=== PATIENT | female | born 1945 | race African-American/Black ===

== ENCOUNTER 2021-02-12 06:34 | Inpatient (IN) | payer MEDICARE, MEDICAID ==
[~2021-02-12] VITALS: Ht 152.4 cm; Wt 43.1 kg
[~2021-02-12 06:34] MED LIST: CARVEDILOL; COLACE; GABAPENTIN; NEXUM; NORVASC
[2021-02-12] MEDS ORDERED: ACETAMINOPHEN 325MG TABLET PO STA (07:29)
[2021-02-12] MEDS ORDERED: LEVOFLOXACIN 750MG PREMIX 150 ML IV ONE (07:30)
[2021-02-12] MEDS ORDERED: SODIUM CHLORIDE 0.9% 1000ML BAG (SEPSIS BOLUS) IV ONE (07:30)
[2021-02-12 09:23] LABS: BASOPHILS % 1.3 % (0.0-2.0); EOSINOPHILS % 2.6 % (0.0-5.0); HEMATOCRIT. 29.8 % (36.0-48.0); HEMOGLOBIN. 10.2 g/dL (12.0-16.0); LYMPHOCYTES % 28.3 % (20.0-50.0); MEAN CORPUSCULAR HEMOGLOBIN 29.4 pg (28.0-32.0); MEAN PLATELET VOLUME 8.3 fl (7.4-10.4); MONOCYTES % 6.3 % (2.0-8.0); NEUTROPHILS % 61.5 % (40.0-76.0); PLATELET 408 x1000/uL (130-400); RED BLOOD CELL COUNT 3.46 mill/uL (4.2-5.4); RED CELL DISTRIBUTION WIDTH 14.5 % (11.6-14.6)
[2021-02-12 09:29] LABS: CHLORIDE 109 mEq/L (98-107)
[2021-02-12 09:32] LABS: PROTHROMBIN TIME 10.3 sec (9.6-11.0)
[2021-02-12 09:41] LABS: CLARITY URINE CLEAR (CLEAR); COLOR URINE YELLOW (YELLOW); KETONES URINE NEGATIVE (NEGATIVE); LEUKOCYTE ESTERASE URINE NEGATIVE (NEGATIVE); NITRITE URINE NEGATIVE (NEGATIVE); OCCULT BLOOD URINE NEGATIVE (NEGATIVE); PH URINE 7.5 (4.5-8.0); PROTEIN URINE NEGATIVE (NEGATIVE); SPECIFIC GRAVITY URINE 1.017 (1.005-1.030)
[2021-02-12] MEDS ORDERED: ONDANSETRON HCL 4MG/2ML INJ IV PRN (13:45)
[2021-02-12] MEDS ORDERED: DIPHENHYDRAMINE 50MG/ML VIAL IV PRN (13:45)
[2021-02-12] MEDS ORDERED: CLONIDINE 0.1MG TABLET PO PRN (13:45)
[2021-02-12] MEDS ORDERED: IPRATROPIUM/ALBUTEROL 0.5-3(2.5)MG/3ML NEB HHN PRN (13:45)
[2021-02-12] MEDS ORDERED: LEVOFLOXACIN 500MG PREMIX 100 ML IV SCH (14:00)
[2021-02-12] MEDS: SODIUM CHLORIDE 0.9% 1,000 ML IV SCH (15:04)
[2021-02-13] VITALS (7 sets, daily range): BP systolic 107–157; BP diastolic 71–102
[2021-02-13] MEDS ORDERED: IOHEXOL-350 100 ML BOTTLE ONE (03:58)
[2021-02-13] MEDS ORDERED: MULT-1146 MT (04:52)
[2021-02-13] MEDS ORDERED: TRU10 EACHEYE (04:53)
[2021-02-13] MEDS ORDERED: [UNRECOGNIZED DRUG - CODE] EACHEYE (04:55)
[2021-02-13] MEDS ORDERED: ASCO500C18 MT (04:57)
[2021-02-13] MEDS ORDERED: TOPUD PO (04:58)
[2021-02-13] MEDS ORDERED: FERR220S6 MT (05:02)
[2021-02-13] MEDS ORDERED: ASPI-1497 MT (05:05)
[2021-02-13] MEDS ORDERED: CRAN450T10 MT (05:06)
[2021-02-13 07:47] LABS: CHLORIDE 110 mEq/L (98-107)
[2021-02-13 08:11] LABS: HDL CHOLESTEROL 60 mg/dL (40-59); LDL CHOLESTEROL 99 mg/dL (5-100)
[2021-02-13] MEDS: SODIUM CHLORIDE 0.9% 1,000 ML IV SCH ×2 (09:14→18:34)
[2021-02-13 10:39] LABS: BASOPHILS % 1.3 % (0.0-2.0); EOSINOPHILS % 4.4 % (0.0-5.0); HEMATOCRIT. 25.5 % (36.0-48.0); MEAN CORPUSCULAR HEMOGLOBIN 30.9 pg (28.0-32.0); MEAN CORPUSCULAR VOLUME 87.3 fL (81.0-99.0); MEAN PLATELET VOLUME 8.4 fl (7.4-10.4); MONOCYTES % 8.3 % (2.0-8.0); PLATELET 351 x1000/uL (130-400); RED BLOOD CELL COUNT 2.92 mill/uL (4.2-5.4); RED CELL DISTRIBUTION WIDTH 14.7 % (11.6-14.6)
[2021-02-13] MEDS ORDERED: LEVOFLOXACIN 250MG PREMIX 50 ML IV SCH (14:00)
[2021-02-13] MEDS: ACETAMINOPHEN 325MG TABLET PO PRN (18:34)
[2021-02-14] VITALS: BP 136/112
[2021-02-14] MEDS: ACETAMINOPHEN 325MG TABLET PO PRN ×3 (00:01→22:06)
[2021-02-14 04:00] VITALS: BP 140/96
[2021-02-14] MEDS: SODIUM CHLORIDE 0.9% 1,000 ML IV SCH ×2 (06:30→22:06)
[2021-02-14 07:19] LABS: BASOPHILS % 1.2 % (0.0-2.0); EOSINOPHILS % 4.6 % (0.0-5.0); HEMATOCRIT. 28.1 % (36.0-48.0); HEMOGLOBIN. 9.4 g/dL (12.0-16.0); LYMPHOCYTES % 27.5 % (20.0-50.0); MEAN CORPUSCULAR HEMOGLOBIN 29.3 pg (28.0-32.0); MEAN CORPUSCULAR VOLUME 87.4 fL (81.0-99.0); MEAN PLATELET VOLUME 8.3 fl (7.4-10.4); MONOCYTES % 7.7 % (2.0-8.0); PLATELET 357 x1000/uL (130-400); RED BLOOD CELL COUNT 3.21 mill/uL (4.2-5.4); RED CELL DISTRIBUTION WIDTH 14.5 % (11.6-14.6)
[2021-02-14 07:35] LABS: CHLORIDE 111 mEq/L (98-107)
[2021-02-14 08:00] VITALS: BP 113/60
[2021-02-14 12:00] VITALS: BP 95/56
[2021-02-14 16:00] VITALS: BP 115/52
[2021-02-14 20:00] VITALS: BP 117/69
[2021-02-15] VITALS: BP 119/70
[2021-02-15 04:00] VITALS: BP 107/48
[2021-02-15 08:19] VITALS: BP 130/52
[2021-02-15] MEDS ORDERED: ZINC SULFATE 220 MG ( 50 ) CAPSULE PO SCH (09:00)
[2021-02-15] MEDS ORDERED: ASCORBIC ACID 500 MG TABLET PO SCH (09:00)
[2021-02-15 12:26] VITALS: BP 141/103
[2021-02-15 13:10] VITALS: BP 141/103
== END 2021-02-15 14:27 | DRG 133 ==
LOC: ER 06:34 → MICUSO 11:57 → EDBEDREQTM 12:10 → EDBEDREQ 12:10 → EDBEDREQSVC 12:10 → 6WST 20:30
PROVIDERS: ADMIT Internal Medicine; ATTEND Internal Medicine
DX: J96.00 Acute respiratory failure, unspecified whether with hypoxia or hypercapnia (principal); L89.153 Pressure ulcer of sacral region, stage 3; E46 Unspecified protein-calorie malnutrition; F03.90 Unspecified dementia, unspecified severity, without behavioral disturbance, psychotic disturbance, mood disturbance, and anxiety; L85.3 Xerosis cutis; Z20.822 Contact with and (suspected) exposure to COVID-19; I73.9 Peripheral vascular disease, unspecified; Z79.899 Other long term (current) drug therapy; Z88.0 Allergy status to penicillin; Z86.73 Personal history of transient ischemic attack (TIA), and cerebral infarction without residual deficits; Z68.1 Body mass index [BMI] 19.9 or less, adult; R79.89 Other specified abnormal findings of blood chemistry; R50.9 Fever, unspecified
CPT/HCPCS: 36415; 71045; 71275; 80048; 80053; 80061; 81003; 82040; 83605; 84134; 84145; 84443; 84484; 85025; 85379; 87426; 92610; 93005; 93923; 93970; 99291; J1200; J1956; J7030; Q9967

== ENCOUNTER 2021-11-18 15:09 | Inpatient (IN) | payer MEDICARE, MEDICAID ==
[~2021-11-18] VITALS: Ht 162.6 cm; Wt 46.7 kg
[~2021-11-18 15:09] MED LIST changes: +ASCO500C18 MT; +ASPI-1497 MT; +CRAN450T10 MT; +FERR220S6 MT; +MULT-1146 MT; +TOPUD PO; +TRU10 EACHEYE; +[UNRECOGNIZED DRUG - CODE] EACHEYE
[2021-11-18] MEDS ORDERED: SODIUM CHLORIDE 0.9% 1,000 ML IV ONE ×2 (15:30→17:30)
[2021-11-18] MEDS ORDERED: CEFTRIAXONE 1 G PREMIX 50 ML IV ONE (15:30)
[2021-11-18] MEDS ORDERED: AZITHROMYCIN 500MG/250ML 250 ML IV ONE (15:30)
[2021-11-18 15:50] LABS: CLARITY URINE TURBID (CLEAR); COLOR URINE YELLOW (YELLOW); KETONES URINE NEGATIVE (NEGATIVE); LEUKOCYTE ESTERASE URINE 2+ (NEGATIVE); NITRITE URINE NEGATIVE (NEGATIVE); OCCULT BLOOD URINE NEGATIVE (NEGATIVE); PH URINE >=9.0 (4.5-8.0); PROTEIN URINE 4+ (NEGATIVE); SPECIFIC GRAVITY URINE 1.023 (1.005-1.030)
[2021-11-18 15:58] LABS: BG BASE EXCESS -14.4 mmol/L (-2.0-2.0); BG CARBOXYHEMOGLOBIN 0.3 % (0.5-1.5); BG DEOXYHEMOGLOBIN 13.5 % (0.0-5.0); BG FRACTION INSPIRED OXYGEN 36; BG METHEMOGLOBIN 0.3 % (0.0-1.5); BG OXYGEN SATURATION 86.4 % (92.0-98.5); BG OXYHEMOGLOBIN 85.9 % (94.0-97.0); BG PCO2 35.6 mmHg (35.0-45.0); BG PO2 68.5 mmHg (75.0-100.0); BG SAMPLE SITE RIGHT RADIAL; BG TOTAL HEMOGLOBIN 11.5 g/dL (12.0-18.0); BG VENT MODE NASAL CANNULA
[2021-11-18] MEDS ORDERED: VANCOMYCIN 1G PREMIX 200 ML IV SCH (16:15)
[2021-11-18 17:01] LABS: HEMATOCRIT. 36.7 % (36.0-48.0); HEMOGLOBIN. 10.9 g/dL (12.0-16.0); MEAN CORPUSCULAR HEMOGLOBIN 27.6 pg (28.0-32.0); MEAN CORPUSCULAR VOLUME 92.6 fL (81.0-99.0); PLATELET 382 x1000/uL (130-400); RED BLOOD CELL COUNT 3.96 mill/uL (4.2-5.4); RED CELL DISTRIBUTION WIDTH 16.7 % (11.6-14.6)
[2021-11-18 17:07] LABS: CHLORIDE 99 mEq/L (98-107)
[2021-11-18] MEDS ORDERED: NOREPINEPHRINE 8MG/250ML PMX 250 ML IV SCH (17:30)
[2021-11-18] MEDS ORDERED: VASOPRESSIN 20 UNIT in SODIUM CHLORIDE 0.9% 99 ML SCH (17:30)
[2021-11-18 17:37] LABS: PLATELET ESTIMATE NORMAL
[2021-11-18 17:53] LABS: BG BASE EXCESS -17.3 mmol/L (-2.0-2.0); BG CARBOXYHEMOGLOBIN 0.3 % (0.5-1.5); BG FRACTION INSPIRED OXYGEN 100; BG HCO3 ACT 11.8 mmol/L (22.0-26.0); BG METHEMOGLOBIN 0.5 % (0.0-1.5); BG OXYHEMOGLOBIN 98.2 % (94.0-97.0); BG PCO2 42.7 mmHg (35.0-45.0); BG PO2 257.4 mmHg (75.0-100.0); BG SAMPLE SITE RIGHT RADIAL; BG TOTAL HEMOGLOBIN 7.9 g/dL (12.0-18.0); BG VENT MODE VENT - AC
[2021-11-18] MEDS ORDERED: PHENYLEPHRINE 50 MG in DEXT 5% WATER 245 ML IV SCH (18:00)
[2021-11-18] MEDS ORDERED: PHENYLEPHRINE 50 MG in DEXT 5% WATER 245 ML IV PRN (18:15)
[2021-11-18] MEDS: MEROPENEM 1,000 MG in SODIUM CHLORIDE 0.9% 100 ML IV SCH (20:20)
[2021-11-18 20:28] LABS: BG BASE EXCESS -7.9 mmol/L (-2.0-2.0); BG CARBOXYHEMOGLOBIN 0.3 % (0.5-1.5); BG DEOXYHEMOGLOBIN 13.5 % (0.0-5.0); BG FRACTION INSPIRED OXYGEN 75; BG METHEMOGLOBIN 0.3 % (0.0-1.5); BG OXYGEN SATURATION 86.4 % (92.0-98.5); BG OXYHEMOGLOBIN 85.9 % (94.0-97.0); BG PCO2 27.5 mmHg (35.0-45.0); BG PH 7.383 (7.350-7.450); BG PO2 54.7 mmHg (75.0-100.0); BG SAMPLE SITE RIGHT BRACHIAL; BG TOTAL HEMOGLOBIN 9.6 g/dL (12.0-18.0); BG TOTAL RESPIRATORY RATE 40 b/min; BG VENT MODE VENT - AC
[2021-11-18] MEDS ORDERED: HYDRALAZINE 20MG/ML VIAL IV PRN (21:15)
[2021-11-18] MEDS ORDERED: LORAZEPAM 2MG/ML CPJ IV PRN (21:15)
[2021-11-18] MEDS ORDERED: ACETAMINOPHEN 325MG TABLET PO PRN (21:15)
[2021-11-18] MEDS ORDERED: IPRATROPIUM/ALBUTEROL 0.5-3(2.5)MG/3ML NEB HHN PRN (21:15)
[2021-11-18] MEDS ORDERED: HYDROCODONE/ACETAMINOPHEN 5/325MG TABLET PO PRN (21:15)
[2021-11-18] MEDS ORDERED: VASOPRESSIN 20 UNIT in SODIUM CHLORIDE 0.9% 99 ML IV PRN ×2 (21:15→21:45)
[2021-11-18] MEDS ORDERED: CLONIDINE 0.1MG TABLET PO PRN (21:15)
[2021-11-18] MEDS ORDERED: GUAIFENESIN 200MG/10ML SUGAR FREE UDC PO PRN (21:15)
[2021-11-18] MEDS ORDERED: MAGNESIUM/ALUMINUM HYDROXIDE/SIMETHICONE 30ML UDC PO PRN (21:15)
[2021-11-18] MEDS ORDERED: ONDANSETRON HCL 4MG/2ML INJ IV PRN (21:15)
[2021-11-18] MEDS ORDERED: DIPHENHYDRAMINE 50MG/ML VIAL IV PRN (21:15)
[2021-11-18] MEDS ORDERED: PHENYLEPHRINE 100 MG in DEXT 5% WATER 240 ML IV PRN ×2 (21:15→21:45)
[2021-11-18] MEDS ORDERED: DOCUSATE SODIUM 100MG CAPSULE PO PRN (21:15)
[2021-11-18] MEDS ORDERED: MORPHINE SULFATE 2 MG/ML CPJ (NOT FOR IM USE) IV PRN (21:37)
[2021-11-18] MEDS ORDERED: VASOPRESSIN 20 UNIT in SODIUM CHLORIDE 0.9% 99 ML IV SCH (21:44)
[2021-11-18] MEDS ORDERED: NOREPINEPHRINE 8 MG in DEXT 5% WATER 242 ML IV PRN (21:45)
[2021-11-18] MEDS: DEXT 5%/0.45% NACL 1000ML 1,000 ML IV SCH (21:46)
[2021-11-18] MEDS ORDERED: ENOXAPARIN 30MG/0.3ML SYR SUBCUT SCH (21:48)
[2021-11-18] MEDS: SODIUM CHLORIDE 0.9% INJ 3ML FLUSH IVF SCH (22:07)
[2021-11-19] VITALS (65 sets, daily range): BP systolic 56–176; BP diastolic 16–118
[2021-11-19] MEDS: PHENYLEPHRINE 100 MG in DEXT 5% WATER 240 ML IV PRN ×2 (01:40→08:49)
[2021-11-19] MEDS: DEXT 5%/0.45% NACL 1000ML 1,000 ML IV SCH (01:53)
[2021-11-19] MEDS: MEROPENEM 1,000 MG in SODIUM CHLORIDE 0.9% 100 ML IV SCH (02:07)
[2021-11-19] MEDS ORDERED: NOREPINEPHRINE 32 MG in DEXT 5% WATER 218 ML IV PRN (02:15)
[2021-11-19] MEDS ORDERED: PROPOFOL 10MG/ML 100ML 100 ML IV PRN (03:45)
[2021-11-19] MEDS: SODIUM CHLORIDE 0.9% INJ 3ML FLUSH IVF SCH (05:24)
[2021-11-19 06:05] LABS: HEMATOCRIT. 37.4 % (36.0-48.0); HEMOGLOBIN. 11.1 g/dL (12.0-16.0); MEAN CORPUSCULAR HEMOGLOBIN 27.9 pg (28.0-32.0); MEAN CORPUSCULAR VOLUME 94.3 fL (81.0-99.0); MEAN PLATELET VOLUME 9.9 fl (7.4-10.4); PLATELET 267 x1000/uL (130-400); RED BLOOD CELL COUNT 3.96 mill/uL (4.2-5.4); RED CELL DISTRIBUTION WIDTH 16.7 % (11.6-14.6)
[2021-11-19] MEDS ORDERED: NALOXONE HCL 0.4MG/ML VIAL IV PRN (07:45)
[2021-11-19 08:26] LABS: BG CARBOXYHEMOGLOBIN 0.3 % (0.5-1.5); BG DEOXYHEMOGLOBIN 2.1 % (0.0-5.0); BG FRACTION INSPIRED OXYGEN 100; BG HCO3 ACT 17.4 mmol/L (22.0-26.0); BG METHEMOGLOBIN 0.3 % (0.0-1.5); BG OXYGEN SATURATION 97.9 % (92.0-98.5); BG OXYHEMOGLOBIN 97.3 % (94.0-97.0); BG PCO2 27.8 mmHg (35.0-45.0); BG PH 7.415 (7.350-7.450); BG PO2 109.1 mmHg (75.0-100.0); BG SAMPLE SITE RIGHT RADIAL; BG TOTAL HEMOGLOBIN 10.1 g/dL (12.0-18.0); BG VENT MODE VENT - AC
[2021-11-19] MEDS ORDERED: MEROPENEM 1,000 MG in SODIUM CHLORIDE 0.9% 100 ML IV SCH (09:00)
[2021-11-19 09:46] LABS: CHLORIDE 100 mEq/L (98-107)
[2021-11-19] MEDS ORDERED: IPRATROPIUM BROMIDE (0.02%) 0.5MG/2.5ML NEB HHN SCH (11:00)
[2021-11-19] MEDS: MORPHINE SULFATE 2 MG/ML CPJ (NOT FOR IM USE) IV PRN ×5 (13:00→18:51)
[2021-11-19] MEDS ORDERED: VANCOMYCIN 500MG PREMIX 100 ML IV SCH (15:00)
[2021-11-19 15:44] LABS: PLATELET ESTIMATE NORMAL
[2021-11-19] MEDS: MORPHINE SULFATE 250 MG in DEXT 5% WATER 225 ML IV PRN (20:04)
[2021-11-20] VITALS: BP 77/47
[2021-11-20 04:00] VITALS: BP 80/47
[2021-11-20 07:54] LABS: BG BASE EXCESS -1.3 mmol/L (-2.0-2.0); BG CARBOXYHEMOGLOBIN 0.3 % (0.5-1.5); BG DEOXYHEMOGLOBIN 5.8 % (0.0-5.0); BG METHEMOGLOBIN 0.9 % (0.0-1.5); BG OXYGEN SATURATION 94.1 % (92.0-98.5); BG PCO2 42.5 mmHg (35.0-45.0); BG PH 7.369 (7.350-7.450); BG PO2 79.9 mmHg (75.0-100.0); BG SAMPLE SITE RIGHT RADIAL; BG TOTAL HEMOGLOBIN 9.1 g/dL (12.0-18.0); BG VENT MODE NASAL CANNULA
[2021-11-20 08:00] VITALS: BP 94/53
[2021-11-20 11:25] LABS: HEMATOCRIT. 23.7 % (36.0-48.0); HEMOGLOBIN. 7.5 g/dL (12.0-16.0); MEAN CORPUSCULAR HEMOGLOBIN 27.6 pg (28.0-32.0); MEAN PLATELET VOLUME 9.5 fl (7.4-10.4); PLATELET 166 x1000/uL (130-400); RED BLOOD CELL COUNT 2.72 mill/uL (4.2-5.4); RED CELL DISTRIBUTION WIDTH 16.3 % (11.6-14.6)
[2021-11-20 11:58] VITALS: BP 108/74
[2021-11-20 15:56] VITALS: BP 143/87
[2021-11-20 20:00] VITALS: BP 140/54
[2021-11-20 21:32] LABS: PLATELET ESTIMATE NORMAL
[2021-11-21] VITALS: BP 134/76
[2021-11-21 04:00] VITALS: BP 148/54
[2021-11-21 06:10] LABS: HEMATOCRIT. 24.4 % (36.0-48.0); HEMOGLOBIN. 7.8 g/dL (12.0-16.0); MEAN CORPUSCULAR HEMOGLOBIN 27.6 pg (28.0-32.0); MEAN CORPUSCULAR VOLUME 86.6 fL (81.0-99.0); MEAN PLATELET VOLUME 9.4 fl (7.4-10.4); PLATELET 163 x1000/uL (130-400); RED BLOOD CELL COUNT 2.82 mill/uL (4.2-5.4); RED CELL DISTRIBUTION WIDTH 16.1 % (11.6-14.6)
[2021-11-21 08:00] VITALS: BP 133/76
[2021-11-21 12:00] VITALS: BP 128/65
[2021-11-21 16:23] VITALS: BP 123/67
[2021-11-21 17:43] LABS: PLATELET ESTIMATE NORMAL
[2021-11-21 20:00] VITALS: BP 135/72
[2021-11-22] VITALS: BP 147/66
[2021-11-22 04:00] VITALS: BP 128/69
[2021-11-22 08:00] VITALS: BP 138/75
[2021-11-22 12:00] VITALS: BP 131/67
[2021-11-22 15:45] VITALS: BP 144/68
[2021-11-22 20:00] VITALS: BP 129/69
[2021-11-23] VITALS: BP 105/55
[2021-11-23 04:00] VITALS: BP 104/60
[2021-11-23 08:00] VITALS: BP 104/54
[2021-11-23 12:00] VITALS: BP 105/61
[2021-11-23 16:00] VITALS: BP 105/57
[2021-11-23] MEDS: MORPHINE SULFATE 250 MG in DEXT 5% WATER 225 ML IV PRN ×2 (18:24→18:25)
[2021-11-23 20:12] VITALS: BP 98/53
[2021-11-24] VITALS: BP 107/59
[2021-11-24 04:00] VITALS: BP 109/58
[2021-11-24 07:00] LABS: HEMATOCRIT. 23.6 % (36.0-48.0); HEMOGLOBIN. 7.5 g/dL (12.0-16.0); MEAN CORPUSCULAR HEMOGLOBIN 27.6 pg (28.0-32.0); MEAN PLATELET VOLUME 9.1 fl (7.4-10.4); PLATELET 205 x1000/uL (130-400); RED BLOOD CELL COUNT 2.71 mill/uL (4.2-5.4); RED CELL DISTRIBUTION WIDTH 16.3 % (11.6-14.6)
[2021-11-24 08:00] VITALS: BP 110/64
[2021-11-24 12:29] VITALS: BP 108/65
[2021-11-24 13:59] LABS: PLATELET ESTIMATE NORMAL
[2021-11-24 16:00] VITALS: BP 114/58
[2021-11-24 20:00] VITALS: BP 109/58
[2021-11-25] VITALS: BP 108/60
[2021-11-25 04:00] VITALS: BP 107/60
[2021-11-25 08:00] VITALS: BP 121/68
[2021-11-25 12:00] VITALS: BP 128/73
[2021-11-25 16:00] VITALS: BP 115/76
[2021-11-25 20:00] VITALS: BP 103/65
[2021-11-26] VITALS: BP 117/63
[2021-11-26 04:00] VITALS: BP 112/68
[2021-11-26] MEDS: MORPHINE SULFATE 100 MG in DEXT 5% WATER 90 ML IV PRN (07:05)
[2021-11-26 08:00] VITALS: BP 124/68
[2021-11-26 12:00] VITALS: BP 122/62
[2021-11-26 16:00] VITALS: BP 122/74
[2021-11-26 20:00] VITALS: BP 118/67
[2021-11-27] VITALS: BP 118/67
[2021-11-27 04:00] VITALS: BP 115/76
[2021-11-27] MEDS: MORPHINE SULFATE 100 MG in DEXT 5% WATER 90 ML IV PRN (05:39)
[2021-11-27 08:00] VITALS: BP 121/62
[2021-11-27 12:00] VITALS: BP 111/64
[2021-11-27 16:00] VITALS: BP 117/75
[2021-11-27 20:00] VITALS: BP 127/65
[2021-11-28] VITALS: BP 102/57
[2021-11-28 04:00] VITALS: BP 110/65
[2021-11-28] MEDS: MORPHINE SULFATE 100 MG in DEXT 5% WATER 90 ML IV PRN (08:36)
[2021-11-28 20:00] VITALS: BP 114/73
[2021-11-29] VITALS: BP 113/77
[2021-11-29 04:00] VITALS: BP 105/66
[2021-11-29 08:00] VITALS: BP 96/64
[2021-11-29] MEDS: MORPHINE SULFATE 100 MG in DEXT 5% WATER 90 ML IV PRN (09:09)
[2021-11-29 12:00] VITALS: BP 107/64
[2021-11-29 16:00] VITALS: BP 120/64
[2021-11-29 20:00] VITALS: BP 109/58
[2021-11-29] MEDS ORDERED: DEXT 5%/0.9% NACL 1,000 ML IV SCH (23:00)
[2021-11-30] VITALS: BP 102/54
[2021-11-30 04:00] VITALS: BP 89/56
[2021-11-30] MEDS: MORPHINE SULFATE 100 MG in DEXT 5% WATER 90 ML IV PRN (06:46)
[2021-11-30 07:32] LABS: HEMATOCRIT. 25.1 % (36.0-48.0); HEMOGLOBIN. 7.6 g/dL (12.0-16.0); MEAN CORPUSCULAR HEMOGLOBIN 26.6 pg (28.0-32.0); MEAN CORPUSCULAR VOLUME 88.3 fL (81.0-99.0); MEAN PLATELET VOLUME 11.2 fl (7.4-10.4); PLATELET 291 x1000/uL (130-400); RED BLOOD CELL COUNT 2.85 mill/uL (4.2-5.4); RED CELL DISTRIBUTION WIDTH 16.8 % (11.6-14.6)
[2021-11-30 08:00] VITALS: BP 125/61
[2021-11-30 09:58] VITALS: BP 125/60
[2021-12-01 10:52] LABS: NUCLEATED RED BLOOD CELLS 2 /100 WBC
[2021-12-01 10:53] LABS: PLATELET ESTIMATE NORMAL
== END 2021-11-30 11:11 | DRG 720 ==
LOC: ER 15:09 → MICUSO 18:14 → ENRESERV 19:31 → 8WST 11-19 20:54 → 6EST 11-22 11:43
PROVIDERS: ADMIT Internal Medicine; ATTEND Internal Medicine
PROC: 5A1935Z Respiratory Ventilation, Less than 24 Consecutive Hours (ICD-10-PCS; principal; 2021-11-18)
PROC: 0BH17EZ Insertion of Endotracheal Airway into Trachea, Via Natural or Artificial Opening (ICD-10-PCS; 2021-11-18)
PROC: 05HY33Z Insertion of Infusion Device into Upper Vein, Percutaneous Approach (ICD-10-PCS; 2021-11-19)
PROC: B54MZZA Ultrasonography of Right Upper Extremity Veins, Guidance (ICD-10-PCS; 2021-11-19)
DX: A41.50 Gram-negative sepsis, unspecified (principal); J96.01 Acute respiratory failure with hypoxia; I46.9 Cardiac arrest, cause unspecified; N17.0 Acute kidney failure with tubular necrosis; L89.154 Pressure ulcer of sacral region, stage 4; R65.21 Severe sepsis with septic shock; G93.40 Encephalopathy, unspecified; E87.2 Acidosis; L89.224 Pressure ulcer of left hip, stage 4; E43 Unspecified severe protein-calorie malnutrition; D64.9 Anemia, unspecified; E11.22 Type 2 diabetes mellitus with diabetic chronic kidney disease; E87.5 Hyperkalemia; N39.0 Urinary tract infection, site not specified; N18.9 Chronic kidney disease, unspecified; F03.90 Unspecified dementia, unspecified severity, without behavioral disturbance, psychotic disturbance, mood disturbance, and anxiety; E11.51 Type 2 diabetes mellitus with diabetic peripheral angiopathy without gangrene; Z20.822 Contact with and (suspected) exposure to COVID-19; Z66 Do not resuscitate; K52.9 Noninfective gastroenteritis and colitis, unspecified; I12.9 Hypertensive chronic kidney disease with stage 1 through stage 4 chronic kidney disease, or unspecified chronic kidney disease; Z88.0 Allergy status to penicillin; Z79.899 Other long term (current) drug therapy; Z79.1 Long term (current) use of non-steroidal anti-inflammatories (NSAID); Z79.82 Long term (current) use of aspirin; Z89.612 Acquired absence of left leg above knee; Z51.5 Encounter for palliative care; I25.2 Old myocardial infarction; I69.320 Aphasia following cerebral infarction
CPT/HCPCS: 36415; 36573; 36600; 71045; 80048; 80053; 80202; 81003; 82040; 82375; 82805; 83605; 83880; 84134; 84145; 85025; 87077; 87186; 87426; 87804; 93005; 94002; 94003; 99291; C1725; C1769; C9803; J0456; J0696; J1650; J2185; J2270; J2370; J2704; J3370; J3490; J7030; J7042; J7050; J7060; A5200